=== PATIENT | male | born 1960 | race Caucasian/White ===

== ENCOUNTER 2017-08-26 18:38 | Emergency (ER) | payer BC ==
[2017-08-26] MEDS ORDERED: MORPHINE SULFATE 5 MG/ML PFS IVP ONE (19:10)
[2017-08-26] MEDS ORDERED: ONDANSETRON HCL IV 4 MG/2 ML VIAL IVP ONE (19:10)
[2017-08-26] MEDS ORDERED: 0.9 % SODIUM CHLORIDE 1000ML 1,000 ML IV SCH (19:15)
[2017-08-26 19:19] LABS: BASO % 0.3 % (0-6); EOS % 2.3 % (0-6); GRAN % 57.4 % (47-80); HEMATOCRIT 39.3 % (42.0-52.0); LYMPH % 30.4 % (16-45); MEAN CORPUSCULAR HEMOGLOBIN 27.1 pg (27-33); MEAN CORPUSCULAR HGB CONC 33.1 g/dl (32-36); MEAN PLATELET VOLUME 11.3 fl (7.4-10.4); MONO % 9.6 % (0-9); PLATELET COUNT 225 K/uL (130-400); RED BLOOD COUNT 4.79 M/uL (4.40-5.70); RED CELL DISTRIBUTION WIDTH 14.5 % (11.5-14.5); WHITE BLOOD COUNT W/O DIFF 9.6 K/uL (4.2-12.2)
--- NOTE | 2017-08-26 19:20 | Emergency Department Record ---
History of Present Illness - General Chief Complaint: Abdominal Pain Stated Complaint: ABD PAIN Source: Patient Mode of Arrival: Wheelchair Limitations: No limitations - History of Present Illness Initial Comments: 57 yo male presents to ED for evaluation of worsening LLQ abdominal pain symptoms that began approximately 4 days ago. Patient denies fevers, chills, nausea, or vomiting symptoms. Patient denies blood in the stools, denies urinary symptoms or history of kidney stone. Patient denies loose stools or constipation, but does report decreased appetite. Patient denies history of diverticulitis or previous abdominal surgery. MD Complaint: Abdominal pain Onset/Timin -: Days(s) Location: LLQ Radiation: Suprapubic Severity: Moderate Severity scale (1-10): 5 Quality: Cramping Consistency: Constant, Intermittent Improves With: Rest Worsens With: Movement Associated Symptoms: Diarrhea - Related Data Previous Rx's Medication Instructions Recorded Hyoscyamine Sulfate [Levsin-Sl] 0.125 mg SL Q8H PRN #20 tab.subl 08/26/17 Allergies Allergy/AdvReac Type Severity Reaction Status Date / Time egg Allergy Mild nausea Verified 08/26/17 18:45 No Known Drug Allergies Allergy Verified 08/26/17 18:45 Travel Screening - Travel/Exposure Within Last 30 Days Have you traveled within the last 30 days?: No - Travel/Exposure Within Last Year Have you traveled outside the [place] in the last year?: No - Additonal Travel Details Have you been exposed to anyone with a communicable illness?: No - Travel Symptoms Symptom Screening: None Review of Systems Constitutional: Denies: Chills, Fever, Malaise, Night sweats Eyes: Denies: Eye discharge, Eye pain ENT: Denies: Congestion, Ear pain, Epistaxis Respiratory: Denies: Cough, Dyspnea Cardiovascular: Denies: Chest pain, Dyspnea on exertion Endocrine: Denies: Fatigue, Heat or cold intolerance Gastrointestinal: Reports: Abdominal pain. Denies: Nausea, Vomiting Genitourinary: Denies: Incontinence, Retention Musculoskeletal: Denies: Arthralgia, Back pain, Gout, Joint swelling Skin: Denies: Bruising, Change in color Neurological: Denies: Abnormal gait, Confusion Psychiatric: Denies: Anxiety Hematological/Lymphatic: Denies: Anemia, Blood Clots Past Medical History - SOCIAL HISTORY Smoking Status: Never smoker Alcohol Use: Occasional Drug Use: None - RESPIRATORY Hx Respiratory Disorders: Yes Hx Sleep Apnea: Yes Hx of CPAP: Yes - CARDIOVASCULAR Hx Cardio Disorders: Yes Hx Hypertension: Yes - NEURO Hx Neuro Disorders: No - GI Hx GI Disorders: Yes Hx Nausea/Vomiting: Yes (in past-better now) - Hx Genitourinary Disorders: Yes Hx Kidney Stones: Yes (x 2 in last year) Hx Renal Disease: Yes (2 "spots on rt kidney-sees specialist) - ENDOCRINE Hx Endocrine Disorders: Yes Hx Diabetes: Yes - MUSCULOSKELETAL Hx Musculoskeletal Disorders: Yes Hx Arthritis: Yes (low back) - PSYCH Hx Psych Problems: Yes Hx Depression: Yes - HEMATOLOGY/ONCOLOGY Hx Hematology/Oncology Disorders: No Family Medical History Any Significant Family History?: Yes Hx Cancer: Mother, Grandparents Physical Exam - General General Appearance: Alert, Oriented x3, Cooperative Limitations: No limitations - Head Head exam: Atraumatic, Normocephalic, Normal inspection Head exam detail: negative: Abrasion, Contusion, Mehta's sign, General tenderness, Hematoma, Laceration - Eye Eye exam: Normal appearance. negative: Conjunctival injection, Periorbital swelling, Periorbital tenderness, Scleral icterus - ENT Ear exam: negative: Auricular hematoma, Auricular trauma Nasal Exam: negative: Active bleeding, Discharge, Dried blood, Foreign body Mouth exam: negative: Drooling, Laceration, Muffled voice, Tongue elevation - Neck Neck exam: Normal inspection. negative: Meningismus, Tenderness - Respiratory Respiratory exam: Normal lung sounds bilaterally. negative: Chest wall tenderness, Respiratory distress, Rhonchi, Stridor, Wheezes - Cardiovascular Cardiovascular Exam: Regular rate, Normal rhythm, Normal heart sounds - GI/Abdominal GI/Abdominal exam: Soft, Tenderness (TTP suprapubic and LLQ on examination, no rebound or guareding are present). negative: Pulsatile mass, Rebound, Rigid - Rectal Rectal exam: Deferred - exam: Deferred - Extremities Extremities exam: Normal inspection. negative: Calf tenderness, Pedal edema, Tenderness - Back Back exam: Denies: CVA tenderness (R), CVA tenderness (L) - Neurological Neurological exam: Alert, Normal gait, Oriented X3 - Psychiatric Psychiatric exam: Normal affect, Normal mood - Skin Skin exam: Normal color. negative: Abrasion Type of lesion: negative: abrasion Course Vital Signs 08/26/17 18:50 Temperature 98.1 F Pulse Rate 83 Respiratory 20 Rate Blood Pressure 155/91 Pulse Ox 94 L - Reevaluation(s) Reevaluation #1: 08/26/17 19:43 Labs reviewed and are grossly unremarkable for an acute process, Glucose 204. Reevaluation #2: 08/26/17 20:11 UA reviewed from [facility] care and is negative for blood or infection. Reevaluation #3: 08/26/17 20:12 CT Abdomen and Pelvis: S/P Gastric bypass, otherwise negative. Reevaluation #4: 08/26/17 20:21 Patient was updated on all results, reports that his pain symptoms are down to 1 -2/10. After discussion with the patient, he is comfortable being discharged home with Levsin for his cramping symptoms with instructions to return in 12-24 hours for reassessment, sooner if symptoms worsen. Patient agrees with the plan of care at this time, and appears stable for discharge at this time. Medical Decision Making - Lab Data Result diagrams: 08/26/17 19:05 08/26/17 19:05 Disposition Disposition: Discharge Clinical Impression: Abdominal pain Qualifiers: Abdominal location: left lower quadrant Qualified Code(s): R10.32 - Left lower quadrant pain Disposition: Home, Self-Care Condition: (2) Stable Instructions: Abdominal Pain (ED) Additional Instructions: Return to ED if your symptoms worsen or if you have any concerns. Levsin as directed. Follow-up with your family doctor in 3-5 days as directed. Prescriptions: Hyoscyamine Sulfate [Levsin-Sl] 0.125 mg SL Q8H PRN #20 tab.subl PRN Reason: Abdominal Pain Forms: Patient Portal Access Time of Disposition: 20:24 Quality - Quality Measures Quality Measures: N/A - Blood Pressure Screening Does Patient Have Any of the Following: Active Dx of HTN Blood Pressure Classification: Hypertensive Reading Systolic Measurement: 155 Diastolic Measurement: 91 Screening for High Blood Pressure: Patient Exclusion, Hx of HTN [[id number]]
[2017-08-26 19:32] LABS: BLOOD UREA NITROGEN 18 mg/dL (6-20); CREATININE 0.7 mg/dL (0.7-1.2); EST GLOMERULAR FILTRATION RATE > 60 mL/min
[2017-08-26 19:33] LABS: TOTAL PROTEIN 6.9 g/dL (6.6-8.7)
[2017-08-26 19:35] LABS: GLUCOSE,RANDOM 204 mg/dL (74-109)
[2017-08-26 19:37] LABS: ALT/SGPT 22 U/L (<41); AST/SGOT 14 U/L (10.0-50.0)
[2017-08-26 19:38] LABS: ALB/GLOB RATIO 1.7 (1.1-1.8); ALBUMIN 4.3 g/dL (4.0-5.0); ALKALINE PHOSPHATASE 44 U/L (40-129); LIPASE 44 U/L (13-60)
[2017-08-26] MEDS ORDERED: HYOSCYAMINE SULFATE ODT 0.125 MG TAB.SUBL SL ONE (20:21)
--- NOTE | 2017-08-27 11:01 | CT SCAN REPORT ---
EXAM: CT OF THE ABDOMEN AND PELVIS WITH CONTRAST HISTORY: ABDOMINAL PAIN. TECHNIQUE: FINDINGS: No evidence of obstruction. No gross abnormalities within the colon. The urinary bladder appears normal. The osseous structures are normal. IMPRESSION: 1. NO ACUTE ABDOMINAL OR PELVIC DISEASE PROCESS. 2. THE PATIENT IS STATUS POST GASTRIC BYPASS SURGICAL CHANGE. NO COMPLICATING PROCESS. JOB NUMBER: [id number] MTDD
== END 2017-08-26 20:35 | disposition home or self-care (01) ==
LOC: ER 18:38
DX: R10.32 Left lower quadrant pain (principal); R19.7 Diarrhea, unspecified; E11.9 Type 2 diabetes mellitus without complications; I10 Essential (primary) hypertension
CPT/HCPCS: 99284 ×2; 96374; 96375; 83690; 85025; 80053; 74177; Q9967; J1980; J2405; J2270; J7030